=== PATIENT | female | born 1960 | race Caucasian/White ===

== ENCOUNTER 2022-09-20 05:30 | Inpatient (IN) | payer BC ==
[~2022-09-20] VITALS: Ht 167.6 cm; Wt 82.6 kg
[2022-09-20] MEDS ORDERED: CEFAZOLIN SOD 2 GM in D5W 50 ML IV ONE (06:30)
[2022-09-20] MEDS ORDERED: SPIR25TA PO (07:14)
[2022-09-20] MEDS ORDERED: CHLO4TAB36 PO (07:14)
[2022-09-20] MEDS ORDERED: TRANEXAMIC ACID 1,000 MG/10 ML VIAL ONE (07:30)
[2022-09-20] MEDS ORDERED: WATER FOR IRRIGATION,STERILE 1,000 ML IRRIG.SOLN IR ONE (07:30)
[2022-09-20] MEDS ORDERED: SUGAMMADEX SODIUM 200 MG/2 ML VIAL IV ONE (07:30)
[2022-09-20] MEDS ORDERED: DESFLURANE 15 MIN GAS INH ONE (07:30)
[2022-09-20] MEDS ORDERED: KETOROLAC TROMETHAMINE 30 MG VIAL ONE (07:30)
[2022-09-20] MEDS ORDERED: BISACODYL 10 MG/SUPPOSITORY RC PRN (07:30)
[2022-09-20] MEDS ORDERED: MIDAZOLAM HCL 5 MG/5 ML VIAL ONE (07:30)
[2022-09-20] MEDS ORDERED: LIDOCAINE 1% 10 MG/ML, 20 ML MDV ONE (07:30)
[2022-09-20] MEDS ORDERED: LR 1,000 ML IV.SOLN IV ONE (07:30)
[2022-09-20] MEDS ORDERED: LACTULOSE 20 GM/30 ML UDC PO PRN (07:30)
[2022-09-20] MEDS ORDERED: PROPOFOL 200MG/ 20ML VIAL (DIPRIVAN) IV ONE (07:30)
[2022-09-20] MEDS ORDERED: DIPHENHYDRAMINE HCL 25 MG CAPSULE PO PRN (07:30)
[2022-09-20] MEDS ORDERED: NS 1000 ML IV.SOLN IV ONE (07:30)
[2022-09-20] MEDS ORDERED: BUPIVACAINE /DEX PF 0.75% SPINAL 2 ML AMP INJ ONE (07:30)
[2022-09-20] MEDS ORDERED: NALOXONE HCL 0.4 MG/ML AMP (NARCAN) IVP PRN ×4 (07:30→08:30)
[2022-09-20] MEDS ORDERED: BUPIVACAINE /PF 0.25% 30 ML VIAL INJ ONE (07:30)
[2022-09-20] MEDS ORDERED: DEXAMETHASONE SOD PHOSPHATE 4 MG/ML VIAL ONE (07:30)
[2022-09-20] MEDS ORDERED: NS IRRIG SOLN 1000 ML IR ONE (07:30)
[2022-09-20] MEDS ORDERED: MORPHINE SULFATE 10MG/10ML PF AMP ONE (07:30)
[2022-09-20] MEDS ORDERED: METOCLOPRAMIDE HCL 10 MG/2 ML VIAL IVP PRN ×2 (07:30→08:30)
[2022-09-20] MEDS ORDERED: ROCURONIUM BROMIDE 10 MG/ML (ZEMURON) ONE (07:30)
[2022-09-20] MEDS ORDERED: ONDANSETRON HCL 4 MG/2 ML VIAL ONE (07:30)
[2022-09-20] MEDS ORDERED: hydrALAZINE HCL 20 MG/ML VIAL IVP PRN (08:30)
[2022-09-20] MEDS ORDERED: LABETALOL 100 MG/ 20ML VIAL IVP PRN (08:30)
[2022-09-20] MEDS ORDERED: MIDAZOLAM HCL 2 MG/2 ML VIAL (VERSED) IVP PRN (08:30)
[2022-09-20] MEDS ORDERED: LR 1,000 ML IV SCH (08:30)
[2022-09-20] MEDS ORDERED: MEPERIDINE HCL/PF 25 MG/ML DISP.SYRIN IVP PRN (08:30)
[2022-09-20] MEDS ORDERED: HYDROmorphone 1 MG/ML INJ. CARTRIDGE IVP PRN ×5 (08:30→11:00)
[2022-09-20] MEDS ORDERED: DIPHENHYDRAMINE INJ 50 MG/ML VIAL IVP PRN (08:30)
[2022-09-20] MEDS ORDERED: ONDANSETRON HCL 4 MG/2 ML VIAL IVP PRN ×2 (08:30→11:45)
[2022-09-20] MEDS ORDERED: ACETAMINOPHEN I.V. 1000 MG 100 ML IV ONE (08:34)
[2022-09-20] MEDS ORDERED: DECADRON 4 MG TABLET PO SCH (09:00)
[2022-09-20] MEDS ORDERED: traMADol HCL HCL 50 MG TABLET (ULTRAM) PO PRN (11:00)
[2022-09-20] MEDS ORDERED: LORATADINE 10 MG TABLET PO PRN (11:00)
[2022-09-20] MEDS ORDERED: oxyCODONE HCL 5 MG TABLET PO PRN ×2 (11:00)
[2022-09-20] MEDS ORDERED: ceFAZolin SODIUM 2 GM in D5W 50 ML IV SCH (11:15)
[2022-09-20 12:00] VITALS: BP_SYST 123
[2022-09-20 12:06] VITALS: BP_SYST 123
[2022-09-20] MEDS ORDERED: KETOROLAC TROMETHAMINE 10 MG TABLET (TORADOL) PO SCH (14:00)
[2022-09-20] MEDS ORDERED: ACETAMINOPHEN 500 MG TABLET PO SCH (14:00)
[2022-09-20 14:38] VITALS: BP_SYST 123
[2022-09-20 15:54] VITALS: BP_SYST 127
[2022-09-20] MEDS ORDERED: ASA81 PO (16:51)
[2022-09-20 18:36] VITALS: BP_SYST 128
[2022-09-20 19:46] VITALS: BP_SYST 112
[2022-09-20] MEDS ORDERED: SENNOSIDES/DOCUSATE SODIUM 1 TAB TABLET(SENOKOT-S) PO SCH (21:00)
[2022-09-21] MEDS ORDERED: ASPIRIN 81 MG TAB.CHEW PO SCH (09:00)
[2022-09-21] MEDS ORDERED: CELECOXIB 200 MG CAPSULE PO SCH (11:00)
== END 2022-09-20 20:10 | disposition home health service (06) | DRG 470 ==
LOC: SMU 05:30
PROVIDERS: ADMIT Student in an Organized Health Care Education/Training Program; ATTEND Student in an Organized Health Care Education/Training Program
PROC: 0SR90JA Replacement of Right Hip Joint with Synthetic Substitute, Uncemented, Open Approach (ICD-10-PCS; principal; 2022-09-20 07:37)
DX: M16.11 Unilateral primary osteoarthritis, right hip (principal)
CPT/HCPCS: 72170-TC; 76001; 87081; 88304; 88311; 96379; 97116-GP; 97163-GP; A4649; C1713; C1776; J0131; J0690; J1100; J1885; J2001; J2250; J2274; J2405; J2704; J3465; J3490; J7030; J7060; J7120